=== PATIENT | female | born 1980 | race Caucasian/White ===

== ENCOUNTER 2019-01-13 15:43 | Emergency (ER) | payer OTHER ==
[~2019-01-13] VITALS: Ht 170.2 cm; Wt 82.3 kg
[~2019-01-13 15:43] MED LIST: CIPROFLOXACIN500 M1 PO; ERYTHROMYCIN E3.5 G3 OP; LOESTRIN 24 FE1 EACH; NEXIUM 40 MG CA40 M1; ULTRACET TABLE1 EACH PO; VICODIN 5-5001 EACH PO; ZOFRAN8 MG PO; ZONEGRAN100 MG
[2019-01-13] MEDS ORDERED: CYMBALTA30 MG PO (15:54)
[2019-01-13 16:34] LABS: HEMATOCRIT 39.4 % (37.0-47.0); HEMOGLOBIN 13.4 gm/dL (12.0-15.0); MCH 31.7 pg (26.0-34.0); MCV 93.2 fL (80.0-100.0); NUCLEATED RBCS 0 /100WBC; PLATELET COUNT* 360 thou/uL (150-400); RBC 4.22 mil/uL (4.20-5.00); RDW-CV 13.2 % (10.5-14.5); WBC 9.2 thou/uL (4.0-11.0)
[2019-01-13 16:36] LABS: CALCIUM 8.1 mg/dL (8.5-10.1); CREATININE 0.9 mg/dL (0.6-1.3); POTASSIUM 3.6 mmol/L (3.5-5.1)
[2019-01-13 16:40] LABS: ALBUMIN 3.1 g/dL (3.4-5.0); TOTAL BILIRUBIN 0.2 mg/dL (<0.1-1.0); TOTAL PROTEIN 6.4 g/dL (6.4-8.2)
[2019-01-13 16:57] LABS: ABSOLUTE EOSINOPHILS 0.8 thou/uL (0.0-0.7); ABSOLUTE LYMPHOCYTES 1.9 thou/uL (0.8-5.3); ABSOLUTE MONOCYTES 0.6 thou/uL (0.0-1.2); ABSOLUTE NEUTROPHILS 5.8 thou/uL (1.6-8.1)
[2019-01-13 16:58] LABS: PLATELET ESTIMATE ADEQUATE
[2019-01-13 17:34] VITALS: BP 112/72
== END 2019-01-13 17:36 | disposition home or self-care (01) ==
LOC: M.ERS 15:43
PROVIDERS: Nurse Practitioner Family
DX: R60.0 Localized edema (principal); G62.9 Polyneuropathy, unspecified; Z90.49 Acquired absence of other specified parts of digestive tract; Z88.8 Allergy status to other drugs, medicaments and biological substances

== ENCOUNTER 2019-03-24 19:32 | Emergency (ER) | payer OTHER ==
[~2019-03-24] VITALS: Ht 170.2 cm; Wt 83.9 kg
[~2019-03-24 19:32] MED LIST changes: +CYMBALTA30 MG PO
[2019-03-24] MEDS ORDERED: FLEXERIL PO (19:56)
[2019-03-24 20:39] LABS: URINE BILIRUBIN NEGATIVE (Negative); URINE BLOOD TRACE (Negative); URINE CLARITY CLEAR; URINE COLOR YELLOW; URINE GLUCOSE-RANDOM NEGATIVE (Negative); URINE KETONES NEGATIVE (Negative); URINE LEUKOCYTES-REFLEX TRACE (Negative); URINE NITRITE-REFLEX NEGATIVE (Negative); URINE PROTEIN NEGATIVE (Negative); URINE SPECIFIC GRAVITY <= 1.005 (1.005-1.030); URINE UROBILINOGEN 0.2 E.U./dl (0.2-1.0)
[2019-03-24 20:41] LABS: ABSOLUTE BASOPHILS 0.1 thou/uL (0.0-0.2); ABSOLUTE EOSINOPHILS 1.1 thou/uL (0.0-0.7); ABSOLUTE LYMPHOCYTES 3.2 thou/uL (0.8-5.3); ABSOLUTE MONOCYTES 0.9 thou/uL (0.0-1.2); ABSOLUTE NEUTROPHILS 7.5 thou/uL (1.6-8.1); EOSINOPHILS 8.7 %; HEMATOCRIT 41.5 % (37.0-47.0); HEMOGLOBIN 13.9 gm/dL (12.0-15.0); MCH 31.8 pg (26.0-34.0); MCHC 33.6 g/dL (28.0-37.0); MCV 94.7 fL (80.0-100.0); MPV 7.7 fl. (7.2-11.1); NUCLEATED RBCS 0 /100WBC; PLATELET COUNT* 392 thou/uL (150-400); POLYS 58.3 %; RBC 4.38 mil/uL (4.20-5.00); RDW-CV 12.6 % (10.5-14.5); WBC 12.9 thou/uL (4.0-11.0)
[2019-03-24 20:48] LABS: BACTERIA-REFLEX 1-9 Few /HPF (None Seen); CALCIUM 8.8 mg/dL (8.5-10.1); CASTS None Seen /LPF (None Seen); CREATININE 1.1 mg/dL (0.6-1.3); CRYSTALS None Seen /LPF (None Seen); POTASSIUM 3.2 mmol/L (3.5-5.1); SQUAMOUS 0-3 Few /LPF (0-3); URINE RBC 0-2 Rare /HPF (0-2); URINE WBC-REFLEX 0-5 Rare /HPF (0-5)
[2019-03-24 20:52] LABS: ALBUMIN 3.4 g/dL (3.4-5.0); TOTAL BILIRUBIN 0.2 mg/dL (<0.1-1.0); TOTAL PROTEIN 7.4 g/dL (6.4-8.2)
[2019-03-24] MEDS ORDERED: ZOFRAN ODT4 MG DISSOLVE (22:23)
[2019-03-24] MEDS ORDERED: AUGMENTIN 875-1 EACH PO (22:23)
[2019-03-24] MEDS ORDERED: NORCO 5-325 TA1 EAC1 PO (22:23)
[2019-03-24 22:49] VITALS: BP 102/77
== END 2019-03-24 22:51 | disposition home or self-care (01) ==
LOC: M.ERS 19:32
PROVIDERS: Emergency Medicine Emergency Medical Services
DX: R10.31 Right lower quadrant pain (principal); N39.0 Urinary tract infection, site not specified; G62.9 Polyneuropathy, unspecified; F10.10 Alcohol abuse, uncomplicated; Z90.49 Acquired absence of other specified parts of digestive tract; Z79.899 Other long term (current) drug therapy; Z88.8 Allergy status to other drugs, medicaments and biological substances

== ENCOUNTER 2019-08-29 19:46 | Inpatient (IN) | payer OTHER ==
[~2019-08-29] VITALS: Ht 170.2 cm; Wt 83.9 kg
[~2019-08-29 19:46] MED LIST changes: +AUGMENTIN 875-1 EACH PO; +FLEXERIL PO; +NORCO 5-325 TA1 EAC1 PO; +ZOFRAN ODT4 MG DISSOLVE
[2019-08-29 19:49] VITALS: BP 150/96
[2019-08-29] MEDS ORDERED: NABUMETONE 750750 M1 PO (19:54)
[2019-08-29] MEDS ORDERED: ZANAFLEX4 M1 PO (19:54)
[2019-08-29] MEDS ORDERED: BIRTH CONTROL PILL (19:55)
[2019-08-29 20:09] LABS: ABSOLUTE BASOPHILS 0.2 thou/uL (0.0-0.2); ABSOLUTE EOSINOPHILS 1.2 thou/uL (0.0-0.7); ABSOLUTE LYMPHOCYTES 3.4 thou/uL (0.8-5.3); ABSOLUTE MONOCYTES 1.3 thou/uL (0.0-1.2); ABSOLUTE NEUTROPHILS 8.1 thou/uL (1.6-8.1); BASOPHILS 1.1 %; EOSINOPHILS 8.6 %; HEMATOCRIT 43.2 % (37.0-47.0); HEMOGLOBIN 14.7 gm/dL (12.0-15.0); MCH 31.8 pg (26.0-34.0); MCV 93.6 fL (80.0-100.0); MONOCYTES 8.8 %; MPV 7.9 fl. (7.2-11.1); NUCLEATED RBCS 0 /100WBC; PLATELET COUNT* 430 thou/uL (150-400); POLYS 57.5 %; RBC 4.61 mil/uL (4.20-5.00); RDW-CV 13.3 % (10.5-14.5); WBC 14.1 thou/uL (4.0-11.0)
[2019-08-29 20:23] LABS: CALCIUM 9.2 mg/dL (8.5-10.1); CREATININE 1.1 mg/dL (0.6-1.3); POTASSIUM 3.4 mmol/L (3.5-5.1)
[2019-08-29 20:27] LABS: ALBUMIN 3.4 g/dL (3.4-5.0); MAGNESIUM 1.9 mg/dL (1.8-2.4); TOTAL BILIRUBIN 0.2 mg/dL (<0.1-1.0); TOTAL PROTEIN 7.4 g/dL (6.4-8.2)
[2019-08-30] VITALS (7 sets, daily range): BP systolic 91–131; BP diastolic 53–82
--- NOTE | 2019-08-30 08:50 | EKG ---
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: [place] : 1980 Requested By: Allan Santiago Order Number: [id number] MD: Jarrod Zhou Measurements Intervals Eliot Rate: 80 P: 48 ND: 124 QRS: -39 QRSD: 102 T: 86 QT: 391 QTc: 451 Interpretive Statements Sinus rhythm Inferior infarct, old Lateral leads are also involved No previous ECG available for comparison Electronically Signed On 08-30-2019 8:49:29 SPORTS WRITER by Jarrod Zhou [email or web address] <ELECTRONICALLY SIGNED> By: Jarrod Zohu MD, [facility] 08/30/19 0849 48 48 Jarrod Zhou MD, FACC /EPI
[2019-08-30 09:17] LABS: HEMATOCRIT 40.7 % (37.0-47.0); MCH 32.3 pg (26.0-34.0); MCHC 34.4 g/dL (28.0-37.0); MCV 93.8 fL (80.0-100.0); MPV 7.8 fl. (7.2-11.1); NUCLEATED RBCS 0 /100WBC; PLATELET COUNT* 392 thou/uL (150-400); RBC 4.34 mil/uL (4.20-5.00); WBC 12.4 thou/uL (4.0-11.0)
[2019-08-30 09:26] LABS: ANION GAP 10 mmol/L (7-16); BUN 13 mg/dL (7-18); CHLORIDE 105 mmol/L (98-107); CO2 23 mmol/L (21-32); CREATININE 1.1 mg/dL (0.6-1.3); GLUCOSE 92 mg/dL (70-99); POTASSIUM 3.5 mmol/L (3.5-5.1); SODIUM 138 mmol/L (136-145)
[2019-08-30 09:41] LABS: ABSOLUTE EOSINOPHILS 1.2 thou/uL (0.0-0.7); ABSOLUTE LYMPHOCYTES 3.7 thou/uL (0.8-5.3); ABSOLUTE MONOCYTES 0.4 thou/uL (0.0-1.2); ABSOLUTE NEUTROPHILS 7.1 thou/uL (1.6-8.1); PLATELET ESTIMATE ADEQUATE
[2019-08-30 09:47] LABS: TROPONIN-I LEVEL <0.06 ng/mL (<0.06)
--- NOTE | 2019-08-30 12:25 | NUR ---
PT BLOOD PRESSURE LOWER THAN NORMAL, PT STATED SHE DIDNT FEEL WELL AND WAS SWEATING WITH A LITTLE BIT OF CHEST PAIN. REPEAT EKG DONE. DR. MANSFIELD NOTIFIED
[2019-08-30 14:12] LABS: URINE BILIRUBIN NEGATIVE (Negative); URINE BLOOD TRACE (Negative); URINE CLARITY CLEAR; URINE COLOR YELLOW; URINE GLUCOSE-RANDOM NEGATIVE (Negative); URINE KETONES NEGATIVE (Negative); URINE LEUKOCYTES NEGATIVE (Negative); URINE NITRITE NEGATIVE (Negative); URINE PROTEIN NEGATIVE (Negative); URINE SPECIFIC GRAVITY 1.025 (1.005-1.030); URINE UROBILINOGEN 0.2 E.U./dl (0.2-1.0)
--- NOTE | 2019-08-30 16:43 | EXE ---
[place] [address] STRESS ECHOCARDIOGRAM Name: DIANNA BUSH Emmanuel Room: [address] IN [facility]#: [id number] Admission: 08/29/19 Attend Phys: Shu Oconnor Discharge: Date of : 78 Date of Service: 08/30/19 1642 Report #: [id number] THIS REPORT FOR: //name// APPROVED REPORT Study performed: 08/30/2019 15:15:55 Exam: Stress Echocardiogram Indication: Chest pain , Dyspnea Patient Location: In-Patient Stress Nurse: Layla Goddard RN Room #: Supervising Physician: José Tristan MD Ht: 5 ft 7 in HR: 62 bpm BP: 105/73 mmHg Medical History Cardiac Risk Factors: Tobacco History (Current/Recent), FHX of CAD Procedure The patient underwent an Exercise Stress Test using the Nabil Protocol. Blood pressure, heart rate, and EKG were monitored. An Echocardiogram was performed by hydroelectric systems technician in four stages in quad fashion. At peak stress, four selected images were obtained and placed side by side with resting images for comparison. Stress Test Details Stress Test: Exercise stress testing was performed using a Nabil protocol. HR Resting HR: 62 bpm Max Heart Rate (APMHR): 181 bpm Max HR Achieved: 158 bpm Target HR (85% APMHR): 153 bpm % of APMHR: 87 Recovery HR: 91 bpm HR response to stress: Normal HR response to stress BP Resting BP: 105/73 mmHg Max BP: 168/89 mmHg Recovery BP: 130/86 mmHg BP response to stress: Normal blood pressure [place] [address] STRESS ECHOCARDIOGRAM Name: DIANNA BUSH Room: [address] IN [facility]#: [id number] Admission: 08/29/19 Attend Phys: Shu Oconnor Discharge: Date of : 78 Date of Service: 08/30/19 1642 Report #: [id number] Resting ECG: Sinus Rhythm Stress ECG: Sinus Tachycardia ST Change: None Arrhythmia: None Recovery ECG: Sinus Rhythm Recovery ST Change: None Recovery Arrhythmia: None Clinical Reason for Termination: Completed protocol Exercise duration: 8 min 02 sec Highest Stage Achieved: Stage 3: 3.4 mph at 14% grade. Exercise capacity: 10.16 METs The patient tolerated standard Nabil protocol exercise without significant cardiac symptoms. The patient exhibited reasonable exercise tolerance. Stress ECG Conclusion The baseline 12-lead EKG shows sinus rhythm with no significant ST segment or T wave abnormality. EKGs obtained during and post exercise showed sinus rhythm and sinus tachycardia with no significant ST segment or T-wave changes when compared to baseline. There were no stress-induced arrhythmias. Pre-Stress Echo The resting Echocardiogram showed normal left ventricular contractility with an estimated Ejection Fraction of about 55-60%. Normal wall motion in all segments on baseline images. Post-Stress Echo The stress Echocardiogram showed normal left ventricular contractility with an estimated Ejection Fraction of about >70%. Normal augmentation of wall motion in all segments on post stress images. Clinical No clinical or ECG evidence for ischemia. Conclusion Clinical Response: Non-ischemic Exercise Capacity: Average Stress ECG Response: Non-ischemic Stress Echo Images: [place] [address] STRESS ECHOCARDIOGRAM Name: DIANNA BUSH Room: [address] IN ..#: [id number] Admission: 08/29/19 Attend Phys: Shu Oconnor Discharge: Date of : 78 Date of Service: 08/30/191641 Report #: [id number] Other Information Study Quality: Good <ELECTRONICALLY SIGNED> By: José Tristan MD, FACC 08/30/191641 41 41 José Tristan MD, FACC /INF
[2019-08-30] MEDS ORDERED: KEFLEX500 M1 PO (16:53)
--- NOTE | 2019-08-30 17:00 | NUR ---
PATIENT ADMISSION PROCESS COMPLETED. DR. MANSFIELD IN TO SEE PATIENT TO DC PATIENT. ON ROOM AIR. PATIENT DENIES PAIN. ANXIOUS TO BE DISCHARGED.
[2019-08-30] MEDS ORDERED: NICOTINE TRANSD21 M1 (17:03)
--- NOTE | 2019-08-30 17:16 | NUR ---
PATIENT GIVEN DISCHARGE INSTRUCTIONS AND PRESCRIPTIONS. VERBALIZED UNDERSTANDING. IV REMOVED. ESCORTED OFF UNIT VIA AMBULATORY WITH ALL BELONGINGS.
--- NOTE | 2019-08-30 17:25 | NUR ---
D/C DONE BY INPATIENT NURSE
--- NOTE | 2019-08-31 13:12 | EKG ---
[place] [address] ELECTROCARDIOGRAM REPORT Name: DIANNA BUSH Room: [place] [address] DIS IN [facility]#: [id number] Admission: 08/29/19 Attend Phys: Charisma Finney Discharge: 08/30/19 Date of : 78 Report #: [id number] THIS REPORT FOR: //name// [facility] ED Test Date: 2019-08-30 Test Time: 12:16:02 Pat Name: DIANNA BUSH Department: Room: [place] [address] Gender: F Inspecting Engineer: DEBRA : 1980 Requested By: Shu Oconnor Order Number: [id number] MD: Jarrod Zhou Measurements Intervals [place] Rate: 62 P: 21 RI: 126 QRS: -26 QRSD: 104 T: 39 QT: 432 QTc: 439 Interpretive Statements Sinus rhythm nonspecific st segment changes Borderline left axis deviation Compared to ECG 08/29/2019 19:49:19 no change Electronically Signed On 08-31-2019 13:11:28 ENDOSCOPY TECHNICIAN by Jarrod Zhou [email or web address] <ELECTRONICALLY SIGNED> By: Jarrod Zhou MD, FAC 08/31/19 1311 1216 1216 Jarrod Zhou MD, [facility] /EPI
== END 2019-08-30 17:15 | disposition home or self-care (01) | DRG 313 ==
LOC: M.ERS 19:46 → M.TBA-ER 21:29
PROVIDERS: Emergency Medicine Emergency Medical Services; Internal Medicine; ADMIT Internal Medicine
DX: R07.89 Other chest pain (principal); G62.9 Polyneuropathy, unspecified; M48.02 Spinal stenosis, cervical region; G43.909 Migraine, unspecified, not intractable, without status migrainosus; F17.210 Nicotine dependence, cigarettes, uncomplicated; D72.829 Elevated white blood cell count, unspecified; Z90.49 Acquired absence of other specified parts of digestive tract; Z88.8 Allergy status to other drugs, medicaments and biological substances